=== PATIENT | female | born 1955 | race African-American/Black ===

== ENCOUNTER → 2017-08-11 | Outpatient (CLI) | payer OTHER ==
[~2017-08-11] MED LIST: ACETAMINOPHEN500 M3 PO; ACIPHEX 20 MG T20 MG OR; BACTROBAN2% TP; KEFLEX500 M1 PO; KLOR-CON20 MEQ PO; LORATADINE10 MG PO; MELOXICAM15 MG PO; MUCINEX1200 MG PO; QUINARETIC PO; TYLENOL WITH CO1 TA1 PO
--- NOTE | 2017-08-12 14:59 | RADIOLOGY REPORT PS360 ---
DEXA DEXA SCAN.-BONE DENSITY STUDY HIPS AND LUMBAR SPINE HISTORY: Postmenopausal female 62-year-old postmenopausal black female.. Low calcium intake. Taking estrogen-progesterone. TECHNIQUE: DEXA scan hip and lumbar spine The most complete data summary and color graphic presentation of the today's ( and any prior ) DEXA findings are available in PACS. Definition and treatment guidelines included. COMPARISON: None listed The dining car conductor image of the lumbar spine demonstrates well mineralized fairly appearing bone throughout lumbar region and hips LUMBAR SPINE: Above Normal bone density throughout L3 vertebral body demonstrates the lowest T score 2.2 with BMD1.467 g/cm sq Overall mean lumbar L1-L4 T score 2.9 with BMD1.529 g/cm sq . . HIPS: Femoral neck density is best predictor of hip fracture risk . Left demonstrates the lowest T score 0.4 with BMD1.089 g/cm sq . Right femoral neck T score 1.1 with BMD 1.189 Average all regions bilateral yields today's Hip Mean T score 2.3 with BMD1.296 g/cm sq . Normal bone density . IMPRESSION 1. LUMBAR SPINE: Above normal bone density throughout the lumbar spine. 2. HIPS: Normal bone density hips bilaterally WHO criteria for post-menopausal, Women: Normal: T-score at or above -1 SD Osteopenia: T-score between -1 and -2.5 SD Osteoporosis: T-score at or below -2.5 SD
--- NOTE | 2017-08-16 11:16 | RADIOLOGY REPORT PS360 ---
DIG MAMM-SCREEN [facility]Z W/CAD CAD Screening COMPARISON: Digital mammograms 08/09/2016 and 08/07/2015 INDICATION: There is no personal or family history of breast cancer TECHNIQUE: Standard CC and MLO images were obtained. R2 CAD reviewed. FINDINGS: The breasts are largely composed primarily of fat. Multiple additional images were required to include all the breast parenchyma. Again noted is a tiny nodular benign-appearing density left breast. There is a benign-appearing calcification right breast. There is no suspicious lesion and there are no suspicious microcalcifications. IMPRESSION: Stable exam with no suspicious lesion seen recommend yearly follow-up BI-RADS CATEGORY: RECOMMENDED FOLLOWUP: 12M 12 MONTH FOLLOW-UP (A letter has been sent to the patient regarding results of the study.)
== END ==
LOC: RAD 09:51
DX: Z12.31 Encounter for screening mammogram for malignant neoplasm of breast (principal); N95.1 Menopausal and female climacteric states; Z13.820 Encounter for screening for osteoporosis
CPT/HCPCS: G0202